=== PATIENT | female | born 1955 | race Caucasian/White ===

== ENCOUNTER 2017-09-06 12:49 | Emergency (ER) | payer BC ==
[~2017-09-06] VITALS: Ht 154.9 cm; Wt 72.6 kg
[2017-09-06] MEDS ORDERED: MUCINEX (12:58)
[2017-09-06] MEDS ORDERED: ASPIRIN (12:58)
[2017-09-06] MEDS ORDERED: ADVIL (12:58)
[2017-09-06] MEDS: ACETAMINOPHEN ES 500 MG TABLET PO ONE (13:08)
--- NOTE | 2017-09-06 13:09 | NUR ---
Pt with nad. able to ambulate with a steady gait. tolerated PO tylenol. discharged with .
[2017-09-06] MEDS ORDERED: ACETAMINOPHEN ES 500 MG TABLET ONE (13:22)
== END 2017-09-06 13:10 | disposition home or self-care (01) ==
LOC: ER 12:49
DX: J11.1 Influenza due to unidentified influenza virus with other respiratory manifestations (principal); Z79.82 Long term (current) use of aspirin; Z88.1 Allergy status to other antibiotic agents
CPT/HCPCS: A4663